=== PATIENT | female | born 2005 | race Two or more races ===

== ENCOUNTER 2024-09-18 16:34 | Observation (INO) | payer MEDICAID, SELFPAY ==
[2024-09-18 16:46] VITALS: BP 123/84; PULSE 96; RESP 18; TEMP 36.9; O2SAT 99; BMI 30.9
--- NOTE | 2024-09-18 16:57 | XR_ITS ---
Examination: CT abdomen with intravenous contrast CT pelvis with intravenous contrast 2-D coronal reconstructions 2-D sagittal reconstructions Date and time of exam:September 18, 2024 1747 hrs. Indications: Onset sharp right lower abdominal pain and vomiting beginning 1300 hrs. Today. CTDI: vol (mGy) 8.39 DLP: (mGycm) 456 Technique: Multiple axial sections of the abdomen and pelvis have been obtained. 64 slice high-resolution scanner used. 3 mm axial sections have been obtained, post intravenous injection 60 cc Isovue-370 2-D sagittal, coronal reconstructions obtained. Low dose protocols were performed. One or more of the following dose reduction techniques were used; automated exposure control, adjustment of the mA and/or KV according to patient size, use of iterative reconstruction technique. Findings: No focal liver or splenic lesions No gallstones No pancreatic or adrenal mass No renal or ureteral calculi, no hydronephrosis Aorta normal size 10 mm fat-containing umbilical hernia Fluid-filled inflamed enlarged appendix medial to the cecum, coronal image 64 No pelvic abscess or free fluid in the pelvis Anteverted uterus no adnexal mass Intact urinary bladder The osseous structures are intact Impression: Acute appendicitis,, no pelvic abscess or findings of appendiceal perforation
[2024-09-18 17:08] VITALS: BP 140/87; PULSE 92; RESP 17; TEMP 36.5; O2SAT 99
[2024-09-18 17:15] LABS: Collection Type, Urine Clean Catch
--- NOTE | 2024-09-18 17:16 | EDNOTE_ITS ---
ED Abdominal Pain RME/HPI General Chief Complaint: Abdominal Pain Stated complaint: SHARP, RLQ PAIN X2 HOURS AGO S/P FALL AT 11 AM Time seen by provider: 09/18/24 16:38 Arrival date/time: 09/18/24 16:34 Limitations: no limitations RME / HPI RME / HPI narrative: 19 year old female with history of gastritis presents to the ED for complaint of abdominal pain beginning at 1pm today. States pain is located most to the right lower quadrant, described as sharp in sensation, rating as severe. Accompanied by nausea and 1 episode of vomiting. States she ate breakfast and lunch which she tolerated well. Denies fevers, chills, chest pain, cough, shortness of breath, diarrhea, constipation, or urinary symptoms. Denies any history of similar pain. No previous surgeries on abdomen. Patient mentioned at ~ 11am today she fell forward onto her abdomen while moving couches although says I did not fall that hard . Denied head injury or LOC. Related Data Previous Rx's ?Medication ?Instructions ?Recorded docusate sodium 100 mg capsule 100 mg PO BID #20 caps 09/19/24 (Colace) hydrocodone 5 mg-acetaminophen 325 1 tab PO Q6H PRN pain (scale score 09/19/24 mg tablet 7-10) #10 tabs ibuprofen 600 mg tablet 600 mg PO Q8H PRN pain (scale 09/19/24 score 4-6) #15 tabs Allergies Allergy/AdvReac Type Severity Reaction Status Date / Time No Known Allergies Allergy Verified 09/18/24 16:36 Review of Systems Review of Systems Narrative Review of Systems: GEN: No fever, no chills, no weight loss EYES: No discharge, no visual changes, no pain HEENT: No ear pain, no congestion, no sore throat PULM: No shortness of breath, no cough, no congestion CV: No chest pain, no dyspnea on exertion, no palpitations GI: +nausea, + vomiting x1, no diarrhea, +pain, no constipation : No frequency, no urgency, no dysuria MUSC/SKEL: No joint pain, no back pain SKIN: No rash PSYCH: No hallucinations, no depression HEME/LYMPH: No easy bleeding or bruising tendencies NEURO: No weakness, no headache Past Medical History Past Medical History CARDIAC: Negative Cardiac Disorders or Congestive Heart Failure RESPIRATORY: Negative Chronic Obstructive Pulmonary Disease (COPD) or Asthma GENITOURINARY: Negative Renal Disease ENDOCRINE: Negative Diabetes Mellitus Type 1 or Diabetes Mellitus Type 2 HEMATOLOGIC: Negative Sickle Cell Disease Social History SMOKING STATUS: Never smoker ED Exam General Limitations: Present no limitations General appearance: Present alert and in distress (mild ) Head Head exam: Present atraumatic, normocephalic and normal inspection Eye Eye exam: Present normal appearance, PERRL and EOMI ENT ENT exam: Present normal exam, normal oropharynx and mucous membranes moist Neck Neck exam: Present normal inspection, full ROM and trachea midline Chest Chest inspection: Present normal inspection and symmetric chest wall rise Respiratory Respiratory exam: Present normal lung sounds bilaterally Cardiovascular Cardiovascular exam: Present regular rate, normal rhythm and normal heart sounds Abdominal Exam Abdominal exam: Present soft, tenderness (Tenderness to the epigastric and RUQ although most severe in the RLQ), guarding (moderate), normal bowel sounds and other (Referred pain in the right lower quadrant when palpation of the LLQ. ) Extremities Exam Extremities exam: Present normal inspection and full ROM Back Exam Back exam: Present normal inspection and full ROM Neurological Exam Neurological exam: Present alert, oriented X3 and CN II-XII intact Psychiatric Psychiatric exam: Present normal affect and normal mood Skin Skin exam: Present warm, dry, intact and normal color Course Course Course Narrative: 1800: Patient signed out to Dr. Low pending CT report, labs, and final disposition. Quality Measures none Orders Category Date Time Status Patient Condition Routine Admission 09/18/24 20:[address] in Observation Status Routine Admission 09/18/24 20:30 Active Activity as Tolerated Routine Care 09/18/24 20:31 Ordered COVID-19 Screening Questionnaire NOW Care 09/18/24 19:[address] Screening NOW Care 09/18/24 16:57 Completed Equipment Validation Specialist STAT Care 09/18/24 17:15 Completed Continuous Pulse Oximetry STAT Care 09/18/24 17:15 Completed Decision to Admit X1 Care 09/18/24 19:42 Completed Insert IV NOW Care 09/18/24 16:57 Completed Insert IV STAT Care 09/18/24 17:15 Completed Intake and Output QSHIFT Care 09/18/24 20:30 Ordered NPO NOW Care 09/18/24 19:41 Completed NPO NOW Care 09/18/24 20:31 Completed NPO STAT Care 09/18/24 17:15 Completed Notify provider NEEDED Care 09/18/24 20:30 Completed Diet NPO (NOW) Diet 09/18/24 19:41 Completed Diet NPO (NOW) Diet 09/18/24 20:[address] abdomen pelvis w con Stat Exams 09/18/24 16:57 Completed XR chest 1V portable Stat Exams 09/18/24 17:17 Completed CBC Stat Lab 09/18/24 17:25 Completed Comprehensive Metabolic Panel Stat Lab 09/18/24 17:25 Completed HCG Qualitative,Urine Stat Lab 09/18/24 17:05 Completed Lipase Stat Lab 09/18/24 17:25 Completed UA, C/S IF [Urinalysis, C/S if Indicated] Stat Lab 09/18/24 17:05 Completed Urine Culture Stat Lab 09/18/24 17:05 Completed Acetaminophen Tab [Tylenol Tab] Med 09/18/24 20:30 Discontinued 650 mg PO Q6H PRN Cefoxitin [Mefoxin] 2 gm Med 09/19/24 00:00 Discontinued Sodium Chloride 0.9% (P) [Ns 0.9% (P)] 50 ml IV Q6HR HYDROmorphone INJ [Dilaudid Inj] Med 09/18/24 17:15 Discontinued 0.5 mg IVP Q1H PRN KCL 20 mEq/L in D5-1/2NS Med 09/18/24 20:30 Discontinued 20 meq in 1,000 ml IV 100 mls/hr Morphine Inj Med 09/18/24 20:32 Discontinued 3 mg IVP Q2H PRN Morphine Inj [Morphine Sulf Inj] Med 09/18/24 19:42 Discontinued 4 mg IVP Q1H PRN Ondansetron Inj [Zofran Inj] Med 09/18/24 20:30 Discontinued 4 mg IV Q6H PRN Ondansetron Inj [Zofran Inj] Med 09/18/24 17:16 Discontinued 4 mg IV X1 ONE Piper/Tazo 3.375 gm [Zosyn] 50 ml Med 09/19/24 06:00 Discontinued IV Q8HR Piper/Tazo 3.375 gm [Zosyn] 50 ml Med 09/18/24 19:45 Discontinued IV X1 Sodium Chloride 0.9% 1000 ml [Ns] 1,000 ml Med 09/18/24 17:15 Discontinued IV 999 mls/hr Sodium Chloride 0.9% 1000 ml [Ns] 1,000 ml Med 09/18/24 19:42 Discontinued IV 999 mls/hr Code Status Routine Oth 09/18/24 20:30 Completed Vital Signs Vital signs: Vital Signs Temperature 98.5 F 09/18/24 16:46 Pulse Rate 96 09/18/24 16:46 Respiratory Rate 18 09/18/24 16:46 Blood Pressure 123/84 09/18/24 16:46 Pulse Oximetry (%) 99 09/18/24 16:46 Oxygen Delivery Method Room Air 09/18/24 16:46 Pulse ox is 99% on room air which is adequate. Abdominal Pain MDM MDM Narrative MDM Narrative:: Myrna Pierre am scribing for and in the presence of Dr. Gonsalves. Patient data External records reviewed:: [facility] previous records (I reviewed ED visit on 05/19/2023) Clinical information provided by:: patient Social determinants that could affect healthcare access:: none Patient has the following chronic illnesses:: Gastritis How is presenting disease/condition affected by chronic disease/condition?: uneffected by Evaluation data The following diagnostics were reviewed and interpreted by me:: lab results and radiology exam(s) Lab and/or radiology exams considered but not ordered:: None Interpretation Summary: Ordering Physician: Lai Gonsalves MD Date of Service: 09/18/24 Procedure(s): XR chest 1V portable Accession Number(s): [id number] cc: Tyler Elkins MD; Lai Gonsalves MD~ Examination: AP chest single view Technique one AP portable upright chest single view Exam date and time: September 18, 2024 1726 hours Comparison May 19, 2023 INDICATIONS: Right lower abdomen pain today FINDINGS: Normal heart size Lungs are clear. The osseous structures are intact IMPRESSION: No active disease Dictated By: Tyler Elkins MD Signed By: <Electronically signed by Tyler Elkins MD in OV> 09/18/24 1751 Medications / Prescriptions Medications or Prescriptions considered but not ordered:: None Medication administrations:: Medication Administration History Discontinued Medications Acetaminophen (Acetaminophen 325 Mg Tablet) 650 mg PO Q6H PRN PRN Reason: Fever >101.5 Stop: 10/18/24 20:29 Last Admin: 09/18/24 23:36 Dose: 650 mg Documented By: AL Comments: ok to give for mild pain Albuterol (Albuterol Inh 8 Gm) Confirm Administered Dose 200 puff INH .STK-MED ONE Stop: 09/19/24 10:48 Albuterol/Ipratropium (Albuterol/Ipratropium (Duoneb) Rt Leora 3 Ml Nebu) 3 ml INH Q4HRRT PRN PRN Reason: SHORTNESS OF BREATH Stop: 10/19/24 10:40 Bupivacaine HCl (Bupivacaine Mpf 0.5% 10 Ml Vial) Confirm Administered Dose 30 ml .ROUTE .STK-MED ONE Stop: 09/19/24 09:22 Dexamethasone Sodium Phosphate (Dexamethasone Sod Phos Inj 10 Mg/Ml Vial) Confirm Administered Dose 10 mg .ROUTE .STK-MED ONE Stop: 09/19/24 09:48 Esmolol HCl (Esmolol Inj 10 Mg/Ml Vial 10 Ml) Confirm Administered Dose 100 mg .ROUTE .STK-MED ONE Stop: 09/19/24 10:03 Fentanyl Citrate (Fentanyl Cit Inj 50 Mcg/Ml Amp 2ml) Confirm Administered Dose 100 mcg .ROUTE .STK-MED ONE Stop: 09/19/24 09:48 Fentanyl Citrate (Fentanyl Cit Inj 50 Mcg/Ml Amp 2ml) 50 mcg IV Q5M PRN; Protocol PRN Reason: PAIN SCALE 4-10(Mod-Sev Stop: 09/19/24 12:42 Hydromorphone HCl (Hydromorphone Inj 2 Mg/Ml Vial) 0.5 mg IVP Q1H PRN PRN Reason: RLQ pain Stop: 09/18/24 20:16 Hydromorphone HCl (Hydromorphone Inj 2 Mg/Ml Vial) 0.2 mg IV Q5M PRN PRN Reason: PAIN 1-6 (mild-mod Stop: 09/19/24 12:42 Sodium Chloride (Ns) 1,000 mls @ 999 mls/hr IV .Q1H1M ONE Stop: 09/18/24 18:15 Last Infusion: 09/18/24 19:46 Dose: Infused Documented By: Admin: 09/18/24 17:25 Dose: 999 mls/hr Documented By: YECENIA Piperacillin/Tazobactam/Dextrose (Zosyn) 50 mls @ 12.5 mls/hr IV Q8HR JIMMY Stop: 09/26/24 05:59 Sodium Chloride (Ns) 1,000 mls @ 999 mls/hr IV .Q1H1M ONE Stop: 09/18/24 20:42 Last Infusion: 09/18/24 21:44 Dose: Infused Documented By: Admin: 09/18/24 19:50 Dose: 999 mls/hr Documented By: ASHU Piperacillin/Tazobactam/Dextrose (Zosyn) 50 mls @ 100 mls/hr IV X1 ONE Stop: 09/18/24 20:14 Last Infusion: 09/18/24 21:44 Dose: Infused Documented By: Admin: 09/18/24 19:49 Dose: 100 mls/hr Documented By: ASHU Potassium Chloride/Dextrose/Sod Cl (Kcl 20 Meq/L In D5-1/2ns) 20 meq in 1,000 mls @ 100 mls/hr IV .Q10H JIMMY Stop: 10/18/24 20:29 Last Admin: 09/19/24 08:23 Dose: 100 mls/hr Documented By: Infusion: 09/19/24 08:12 Dose: Infused Documented By: Admin: 09/18/24 22:12 Dose: 100 mls/hr Documented By: ROSALIA Cefoxitin Sodium 2 gm/ Sodium (Chloride) 50 mls @ 100 mls/hr IV Q6HR JIMMY Stop: 09/26/24 00:00 Last Admin: 09/19/24 11:42 Dose: 100 mls/hr Documented By: Infusion: 09/19/24 08:26 Dose: Infused Documented By: Admin: 09/19/24 05:32 Dose: 100 mls/hr Documented By: Infusion: 09/18/24 23:56 Dose: Infused Documented By: Admin: 09/18/24 23:26 Dose: 100 mls/hr Documented By: ROSALIA Acetaminophen (Ofirmev Inj) Confirm Administered Dose 100 mls @ ud IV .STK-MED ONE Stop: 09/19/24 10:18 Lidocaine HCl (Lidocaine Inj Pf 2% 5 Ml Vial) Confirm Administered Dose 5 ml .ROUTE .STK-MED ONE Stop: 09/19/24 09:52 Midazolam HCl (Midazolam Inj 1 Mg/Ml Vial 2 Ml) Confirm Administered Dose 2 mg .ROUTE .STK-MED ONE Stop: 09/19/24 09:48 Morphine Sulfate (Morphine Sulf Inj 4 Mg/Ml Vial) 4 mg IVP Q1H PRN PRN Reason: PAIN Morphine Sulfate (Morphine Sulf Inj 10 Mg/Ml Vial) 3 mg IVP Q2H PRN PRN Reason: PAIN Stop: 09/20/24 20:31 Last Admin: 09/19/24 05:36 Dose: 3 mg Documented By: Admin: 09/18/24 22:12 Dose: 3 mg Documented By: AL Ondansetron HCl (Ondansetron Inj 2 Mg/Ml Inj 2 Ml) 4 mg IV X1 ONE; Protocol Stop: 09/18/24 17:17 Last Admin: 09/18/24 17:25 Dose: 4 mg Documented By: YECENIA Ondansetron HCl (Ondansetron Inj 2 Mg/Ml Inj 2 Ml) 4 mg IV Q6H PRN PRN Reason: NAUSEA OR VOMITING Stop: 10/18/24 20:29 Last Admin: 09/19/24 05:36 Dose: 4 mg Documented By: Admin: 09/18/24 22:12 Dose: 4 mg Documented By: AL Ondansetron HCl (Ondansetron Inj 2 Mg/Ml Inj 2 Ml) Confirm Administered Dose 4 mg .ROUTE .STK-MED ONE Stop: 09/19/24 09:48 Ondansetron HCl (Ondansetron Inj 2 Mg/Ml Inj 2 Ml) 4 mg IV X1 ONE Stop: 09/19/24 10:42 Propofol (Propofol Inj 10 Mg/Ml Vial 20 Ml) Confirm Administered Dose 200 mg IV .STK-MED ONE Stop: 09/19/24 09:48 Rocuronium [place] (Rocuronium Inj 10 Mg/Ml Vial 10 Ml) Confirm Administered Dose 100 mg .ROUTE .STK-MED ONE Stop: 09/19/24 09:48 Sugammadex Sodium (Sugammadex Inj 100 Mg/Ml 2ml Vial) Confirm Administered Dose 200 mg .ROUTE .STK-MED ONE Stop: 09/19/24 10:03 See above Consultations Consultation(s) initiated? (list below): No Diagnosis Differential diagnosis abdominal pain: abdominal pain, acute appendicitis, calculus of kidney and gastroenteritis Most likely diagnosis given after review of the tests above:: Abdominal pain Admission Indicated Admission indicated?: not indicated Explain why admission is indicated or not indicated:: 1800: Patient signed out to Dr. Low pending CT report, labs, and final disposition. Admission Request Was there a request for admission?: No Disposition Plan Disposition Plan: other (specify) (1800: Patient signed out to Dr. Low pending CT report, labs, and final disposition. ) Discharge Plan Plan Patient Disposition: Admit Acute Care w/in Hospital Problem List Clinical Impression: Abdominal pain Patient/Caregiver Discharge Instructions Discharge Activity: activity as tolerated
[2024-09-18 17:22] LABS: HCG Qualitative,Urine Negative
[2024-09-18] MEDS: SODIUM CHLORIDE 0.9% 1000 ML 1,000 ML 999 ML IV ×2 (17:25→19:50)
[2024-09-18] MEDS: ONDANSETRON INJ 2 MG/ML INJ 2 ML 4 MG IV ×2 (17:25→22:12)
[2024-09-18 17:26] LABS: Bacteria,Urine Rare; Bilirubin,Urine Negative (Negative); Blood,Urine 1+ (Negative); Color,Urine Lt-Yellow (Lt Yel-Yel); Glucose, Urine Negative (Negative); Ketones,Urine Trace (Negative); Leukocyte Esterase,Urine Positive (Negative); Nitrite,Urine Negative (Negative); PH,Urine 6.5 (5.0-7.0); Protein,Urine Negative (Neg - Trace); RBC,Urine 8 /hpf (0-3); Specific Gravity,Urine 1.018 (1.001-1.035); Squamous Epithelial Cell,Urine 10 /hpf (0-5); Urobilinogen,Urine Negative mg/dL (0.0-1.0); WBC,Urine 13 /hpf (0-5)
[2024-09-18 17:37] LABS: Clarity,Urine Hazy (Clear/Hazy); Culture Indicated,Urine Yes
[2024-09-18 17:46] LABS: Basophils # (Auto) 0.1 Thou/mm3 (0.0-0.2); Basophils % (Auto) 0 % (0-2.5); Eosinophils # (Auto) 0.1 Thou/mm3 (0.0-0.5); Eosinophils % (Auto) 0 % (0-10); Hematocrit 45.1 % (36.0-46.0); Hemoglobin 15.2 g/dL (12.0-16.0); Immature Granulocytes % (Auto) 1 % (0-0); Immature Granulocytes Auto 0.12 Thou/mm3 (0.00-0.00); Lymphocytes # (Auto) 2.1 Thou/mm3 (1.0-4.8); Lymphocytes % (Auto) 9 % (10-50); Mean Corpuscular HGB Conc 33.7 g/dl (31.0-37.0); Mean Corpuscular Hemoglobin 30.8 pg (25.0-35.0); Mean Corpuscular Volume 91 fL (80-100); Monocytes # (Auto) 1.2 Thou/mm3 (0.0-0.8); Monocytes % (Auto) 5 % (0-12); Neutrophils # (Auto) 19.7 Thou/mm3 (1.8-7.7); Neutrophils % (Auto) 85 % (37-80); Nucleated Red Blood Cell % 0 /100 WBC (0); Platelet Count 306 Thou/mm3 (140-440); RDW Standard Deviation 43.7 fL (36.4-46.3); Red Blood Count 4.94 Miln/mm3 (4.00-5.20); White Blood Count 23.2 Thou/mm3 (4.5-11.0)
[2024-09-18 18:04] LABS: Alanine Aminotransferase 16 U/L (10-49); Albumin/Globulin Ratio 2.2 (1.2-2.2); Alkaline Phosphatase 78 U/L (46-116); Anion Gap 8 (7-16); Aspartate Amino Transferase 14 U/L (0-34); BUN/Creatinine Ratio 10 Ratio (12-20); Bilirubin,Total 0.8 mg/dL (0.3-1.2); Blood Urea Nitrogen 7 mg/dL (9-23); Calcium 9.2 mg/dL (8.3-10.6); Calcium (Corrected) 9.2 mg/dL (8.5-10.1); Carbon Dioxide 26.4 mMol/L (20.0-31.0); Chloride 102 mMol/L (98-107); Creatinine (Component) 0.7 mg/dL (0.6-1.3); Globulin 2.3 gm/dL (2.3-3.5); Glucose 102 mg/dL (74-106); Lipase 29 U/L (12-53); Osmolality,Calculated 269 (275-295); Potassium 3.4 mMol/L (3.4-5.1); Sodium 136 mMol/L (136-145); Total Protein 7.3 gm/dL (5.7-8.2); eGFR > 60 See Note
[2024-09-18 18:07] VITALS: BP 132/88; PULSE 102; RESP 18; TEMP 36.9; O2SAT 100
--- NOTE | 2024-09-18 18:22 | PD.EDADDENDU ---
Emergency Room Addendum Addendum Narrative: 1800: Care assumed from Dr. Gonsalves, the previous shift emergency physician. Past medical, surgical, social and family history reviewed. Vitals and home medications reviewed. I will assume the care of the patient at this time, pending CT report, labs, and final disposition. Please refer to the emergency department record for history and examination from initial visit.? 19 year old female presents to the Emergency Department with complaint of sharp right lower quadrant pain onset 1 PM today. Physical exam by me shows patient under pain distress at this time. She is sitting up, there is diffuse tenderness, but mainly in the right lower quadrant with guarding. 2030: Discussed test HPI, PMHx, lab, radiology results and/or management with Dr. Palmer. Will admit for further evaluation and management. Accepts patient for admission. RADIOLOGY Procedure(s): CT abdomen pelvis w con Accession Number(s): [id number] cc: Timi (MARYSE),Orlin SERRA; Shannan Norris; Tyler Elkins MD~ Examination: CT abdomen with intravenous contrast CT pelvis with intravenous contrast 2-D coronal reconstructions 2-D sagittal reconstructions Date and time of exam:September 18, 2024 1747 hrs. Indications: Onset sharp right lower abdominal pain and vomiting beginning 1300 hrs. Today. CTDI: vol (mGy) 8.39 DLP: (mGycm) 456 Technique: Multiple axial sections of the abdomen and pelvis have been obtained. 64 slice high-resolution scanner used. 3 mm axial sections have been obtained, post intravenous injection 60 cc Isovue-370 2-D sagittal, coronal reconstructions obtained. Low dose protocols were performed. One or more of the following dose reduction techniques were used; automated exposure control, adjustment of the mA and/or KV according to patient size, use of iterative reconstruction technique. Findings: No focal liver or splenic lesions No gallstones No pancreatic or adrenal mass No renal or ureteral calculi, no hydronephrosis Aorta normal size 10 mm fat-containing umbilical hernia Fluid-filled inflamed enlarged appendix medial to the cecum, coronal image 64 No pelvic abscess or free fluid in the pelvis Anteverted uterus no adnexal mass Intact urinary bladder The osseous structures are intact Impression: Acute appendicitis,, no pelvic abscess or findings of appendiceal perforation Dictated By: Tyler Elkins MD
[2024-09-18] MEDS: PIPER/TAZO 3.375 GM 50 ML IV (19:49)
--- NOTE | 2024-09-18 20:38 | PD.SURHP ---
HPI Date of Admission 09/18/2024 Chief Complaint Chief Complaint: Right lower quadrant abdominal pain with nausea and vomiting HPI 19-year-old female presented to the emergency department with acute onset of abdominal pain. Her pain started earlier today in the epigastric and periumbilical area. The pain was intermittent initially, then it became persistent and progressively worse. Her pain is now localized over right lower quadrant. She has had nausea and vomiting, but denies fever, chills, diarrhea, constipation or dysuria. She denies having similar symptoms in the past with no recent history of trauma. Review of Systems Constitutional Constitutional: Denies chills and Denies fever(s) Cardiovascular Cardiovascular: Denies chest pain Respiratory Respiratory: Denies cough Gastrointestinal Gastrointestinal: Reports abdominal pain, Reports nausea and Reports vomiting Genitourinary Genitourinary: Denies difficulty voiding Hematologic/Lymphatic Hematologic/Lymphatic: Denies easy bleeding and Denies easy bruising Past Medical History Surgical History OTHER SURGICAL HX: No surgeries in the past Social History SMOKING STATUS: Never smoker SUBSTANCE USE: marijuana ALCOHOL: Never Meds Home Medications and Allergies Home Medications ?Medication ?Instructions ?Recorded ?Confirmed ?Type No Known Home Medications 04/12/19 04/12/19 History Allergies Allergy/AdvReac Type Severity Reaction Status Date / Time No Known Allergies Allergy Verified 09/18/24 16:36 Exam Vital Signs Temp Pulse Resp BP Pulse Ox O2 Del Method 98.4 F 102 H 18 132/88 H 100 Room Air 09/18/24 18:07 09/18/24 18:07 09/18/24 18:07 09/18/24 18:07 09/18/24 18:07 09/18/24 18:07 Constitutional Constitutional: no acute distress Routine Respiratory Exam Respiratory: Present CTA bilaterally Routine Cardiovascular Exam Cardiovascular: Present RRR Routine Abdominal Exam Abdominal: Present soft, normoactive bowel sounds and tenderness (Right lower quadrant tenderness to palpation with guarding, no rebound tenderness or peritonitis at this time); Absent distended Results Results: Laboratory Laboratory results: results reviewed Results: Imaging CT scan - abdomen: report reviewed and image reviewed CT scan - pelvis: report reviewed and image reviewed Assessment & Plan Problem List (1) Unspecified acute appendicitis: Qualifiers: Acute appendicitis type: unspecified acute appendicitis type Qualified Code(s): K35.80 - Unspecified acute appendicitis Status: Acute Plan Keep NPO with IVF and IV antibiotics. Plan for laparoscopic possible open appendectomy. Risks include but not limited to infection, bleeding, injury to bowel, bladder, uterus, ovaries, surround neurovascular structures, abdominal sepsis and or abdominal abscess, need for further procedure and or operation discussed with the patient. Benefits and alternatives explained to her, all her questions answered, she agreed and consented to proceed with the operation. Quality Measures Quality Measures none
[2024-09-18 21:30] VITALS: BP 114/70; PULSE 103; RESP 16; TEMP 37.3; O2SAT 99
--- NOTE | 2024-09-18 21:49 | PC.NURSE ---
REPORT GIVEN TO RAMA LINTON RN
[2024-09-18 21:57] VITALS: BMI 30.4
[2024-09-18] MEDS: KCL 20 mEq/L in D5-1/2NS 20 MEQ/1,000 ML BAG 100 MEQ IV (22:12)
[2024-09-18] MEDS: MORPHINE SULF INJ 10 MG/ML VIAL 3 MG IVP (22:12)
[2024-09-18] MEDS: CEFOXITIN 2 GM in SODIUM CHLORIDE 0.9% (P) 50 ML IV (23:26)
[2024-09-18] MEDS: ACETAMINOPHEN 325 MG TABLET 650 MG PO (23:36)
[2024-09-19] VITALS (9 sets, daily range): BP systolic 109–132; BP diastolic 71–88; PULSE 82–116; RESP 14–96; TEMP 36.1–36.7; O2SAT 94–100
[2024-09-19] MEDS: CEFOXITIN 2 GM in SODIUM CHLORIDE 0.9% (P) 50 ML IV ×2 (05:32→11:42)
[2024-09-19] MEDS: ONDANSETRON INJ 2 MG/ML INJ 2 ML 4 MG IV (05:36)
[2024-09-19] MEDS: MORPHINE SULF INJ 10 MG/ML VIAL 3 MG IVP (05:36)
[2024-09-19] MEDS: KCL 20 mEq/L in D5-1/2NS 20 MEQ/1,000 ML BAG 100 MEQ IV (08:23)
--- NOTE | 2024-09-19 10:27 | ESOP_ITS ---
Date of Procedure 09/19/24 Pre Op Diagnosis Acute appendicitis Post Op Diagnosis Acute appendicitis Procedure Laparoscopic appendectomy Findings Inflamed, dilated and hyperemic appendix without perforation Procedure Description Patient was brought into the operating room in supine position. After administration of general endotracheal anesthesia, abdomen was prepped and draped in standard surgical manner. A Veress needle was inserted through the umbilicus and pneumoperitoneum was obtained up to 15 mmHg. The Veress needle was removed and a 5 mm umbilical incision was made. A 5 mm trocar was placed and laparoscopic camera was inserted. Under direct visualization a laparoscopic camera a 5 mm trocar placed in suprapubic region and a 10 mm trocar placed in left lower quadrant. The abdomen was inspected, the cecum was identified and followed until the appendix was identified. The appendix was noted to be inflamed, dilated and hyperemic without perforation. A window was created between the appendix and mesoappendix and the appendix was divided near the appendix and cecal junction with blue Endo JEFFERY stapling device. The mes oappendix was divided with her Endo JEFFERY stapling device. The appendix was placed inside an Endo Catch and removed from the abdomen utilizing left lower quadrant trocar site. Abdomen and pelvis copiously and thoroughly washed and irrigated, all the fluids were suctioned and the suctioned fluid returned clear. Hemostasis was adequate and satisfactory, staple lines were intact without bleeding or any leakage. Left lower quadrant trocar sites fascial defect was closed with 0 Vicryl using Endo closure device. Instruments and trocars removed, pneumoperitoneum was evacuated and the incisions closed with 4-0 Monocryl subcuticular fashion. Instruments, needles and sponge counts were reported to be correct ??2. Patient tolerated the procedure well, was extubated, breathing spontaneously and without difficulty and was transferred to postanesthesia care in stable condition. Anesthesia GETA and local Pathology / specimen Other (Appendix) Estimated Blood Loss 5 Condition Stable Disposition PACU Surgeon Marciano Palmer MD Surgical Staff Operation Date: 09/19/24 10:15 <No data on this case meets the specified criteria>
--- NOTE | 2024-09-19 10:37 | SUR.PHASEI ---
1037: Pt. AAOx4, vitals stable, breathing unlabored, no complaint of pain or nausea, x3 dermabond sites to ABD CDI, no active bleed noted, report received from Jane JAMIL and Junie ARREDONDO.
--- NOTE | 2024-09-19 11:07 | SUR.PHASEI ---
1107: Pt. AAOx4, vitals stable, breathing unlabored, no complaint of pain or nausea, x3 dermabond sites to ABD CDI, no active bleed noted, pt. tolerated bites of ice chips well, gave report to Priya ARREDONDO prior to transfer to room 357. Attempted to call family to make them aware of transfer to room, voicemail was left.
== END 2024-09-19 13:14 | disposition home or self-care (01) ==
LOC: SERX 19:42 → SERHOLD 20:38 → S3NX 21:57
PROVIDERS: Nurse Practitioner Primary Care; Admitting Provider Surgery; Emergency Provider Emergency Medicine; PCP Nurse Practitioner Family; Visit Provider Surgery
PROC: 0DTJ4ZZ Resection of Appendix, Percutaneous Endoscopic Approach (ICD-10-PCS; CPT 44970; principal; 2024-09-19 10:00)
DX: K35.30 Acute appendicitis with localized peritonitis, without perforation or gangrene (principal); Z87.19 Personal history of other diseases of the digestive system
CPT/HCPCS: 44970; 36415; 71045; 74177; 80053; 81001; 81025; 83690; 85025; 87086; 96361; 96365; 96366; 96375; 99285; A4217; A4649; G0378; J0131; J0694; J1100; J2250; J2270; J2405; J2543; J2704; J3010; J3480; J3490; J7030; J7050; Q9967; A9270; J1805

== ENCOUNTER 2025-07-04 07:04 | Emergency (ER) | payer MEDICAID, SELFPAY ==
[2025-07-04 07:06] VITALS: BMI 26.5
[2025-07-04 07:16] VITALS: BP 134/85; PULSE 67; RESP 17; TEMP 37; O2SAT 100
--- NOTE | 2025-07-04 07:26 | EKG_ITS ---
[facility] Test Date: 2025-07-04 Pat Name: VINH DURAN Department: Room: - Gender: Female Resolution Analyst: : 2005 Requested By: Puma Lucas Order Number: [id number] Reading MD: Puma Lucas Measurements Intervals Topping Rate: 62 P: 61 WI: 159 QRS: 40 QRSD: 81 T: 47 QT: 397 QTc: 405 Interpretive Statements SINUS RHYTHM WITH SINUS ARRHYTHMIA No previous ECG available for comparison /[id number]/S0/[id number].pdf
--- NOTE | 2025-07-04 07:29 | PD.EDSYNC ---
ED Syncope RME/HPI General Chief Complaint: General Adult/Misc Complain Stated Complaint: FAINTED Time Seen by Provider: 07/04/25 07:15 Source: patient, RN notes reviewed and old records reviewed Arrival date/time: 07/04/25 07:04 Mode of arrival: ambulatory Limitations: no limitations RME / HPI RME / HPI narrative: 20yof presents ED after syncopal episode at work this morning. Patient reports she's been tired lately from working overnight shifts. She is concerned her tampon fell out while using the restroom this morning (tampon was placed 06/25). Patient passed out around 0430 while sitting on the couch, LOC duration approximately 1 minute. Denies head injury. Patient reports mild dizziness pre- and post syncope. No fever, shortness of breath, chest pain, headache, nausea/vomiting/diarrhea, dysuria or vaginal discharge reported. 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 Previous Rx's ?Medication ?Instructions ?Recorded docusate sodium 100 mg capsule 100 mg PO BID #20 caps 09/19/24 (Colace) hydrocodone 5 mg-acetaminophen 325 1 tab PO Q6H PRN pain (scale score 09/19/24 mg tablet 7-10) #10 tabs ibuprofen 600 mg tablet 600 mg PO Q8H PRN pain (scale 09/19/24 score 4-6) #15 tabs Allergies Allergy/AdvReac Type Severity Reaction Status Date / Time No Known Allergies Allergy Verified 07/04/25 07:06 Review of Systems Review of Systems Systems Reviewed: All systems reviewed, normal except as documented Constitutional Constitutional: Denies chills, Denies fever(s) and Denies headache(s) ENT Ears, Nose, Mouth, and Throat: Reports dizziness and Denies headache(s) Cardiovascular Cardiovascular: Denies chest pain, Denies dyspnea and Reports syncope Respiratory Respiratory: Denies dyspnea Gastrointestinal Gastrointestinal: Denies abdominal pain, Denies loose stools, Denies nausea and Denies vomiting Genitourinary Genitourinary: Denies dysuria, Denies pelvic pain and Denies vaginal discharge Neurologic Neurologic: Reports dizziness, Denies headache(s) and Reports syncope Past Medical History Surgical History SURGICAL: Positive Abdominal Surgery (Appendectomy) Social History SMOKING STATUS: Never smoker SUBSTANCE USE: marijuana ALCOHOL: Never Past Medical History Comments PMH COMMENT: denies pmhx ED Exam General Limitations: Present no limitations General appearance: Present alert and in no apparent distress Head Head exam: Present atraumatic and normocephalic Eye Eye exam: Present normal appearance, PERRL and EOMI ENT ENT exam: Present normal exam and mucous membranes moist Neck Neck exam: Present normal inspection and full ROM Chest Chest inspection: Present normal inspection and symmetric chest wall rise Respiratory Respiratory exam: Present normal lung sounds bilaterally; Absent respiratory distress Cardiovascular Cardiovascular exam: Present regular rate and normal rhythm Abdominal Exam Abdominal exam: Present soft; Absent distention, tenderness, guarding or rebound Extremities Exam Extremities exam: Present normal inspection and full ROM Neurological Exam Neurological exam: Present alert and oriented X3 Psychiatric Psychiatric exam: Present normal affect and normal mood Skin Skin exam: Present warm, dry, intact and normal color Course Quality Measures none Orders Category Date Time Status EKG (ED ONLY) *Do not use* NOW Care 07/04/25 07:27 Completed EKG (ED Only) Stat Exams 07/04/25 07:26 Draft CBC Stat Lab 07/04/25 07:53 Completed CMP [Comprehensive Metabolic Panel] Stat Lab 07/04/25 07:53 Completed HCG Qualitative,Urine Stat Lab 07/04/25 08:05 Completed Troponin I Stat Lab 07/04/25 07:53 Completed UA [Urinalysis] Stat Lab 07/04/25 08:05 Completed Vital Signs Vital signs: Vital Signs Temperature 98.6 F 07/04/25 07:16 Pulse Rate 67 07/04/25 07:16 Respiratory Rate 17 07/04/25 07:16 Blood Pressure 134/85 H 07/04/25 07:16 Pulse Oximetry (%) 100 07/04/25 07:16 Oxygen Delivery Method Room Air 07/04/25 07:16 PROCEDURES: EKG Interpretation #1: Date of EK07/04/25 Rate: 62 Interpretation: Interpreted by me EKG Impression: Normal sinus rhythm, No acute ST-T changes, No ectopy, No ischemic changes, Normal QRS, Normal intervals and Normal axis Syncope MDM Narrative MDM Narrative:: 20yof presents ED after syncopal episode at work this morning. Patient reports she's been tired lately from working overnight shifts. She is concerned her tampon fell out while using the restroom this morning (tampon was placed 06/25). Patient passed out around 0430 while sitting on the couch, LOC duration approximately 1 minute. Denies head injury. Patient reports mild dizziness pre- and post syncope. No fever, shortness of breath, chest pain, headache, nausea/vomiting/diarrhea, dysuria or vaginal discharge reported. 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 Patient is well-appearing, vitals are stable. ED workup reassuring. Encouraged rest, fluids, close PCP follow-up as needed. Stable for discharge, RTED precautions given. Patient data External records reviewed:: [facility] previous records (09/18/24 admit for appendicitis) Clinical information provided by:: patient Social determinants that could affect healthcare access:: none Patient has the following chronic illnesses:: none How is presenting disease/condition affected by chronic disease/condition?: no chronic disease Evaluation data The following diagnostics were reviewed and interpreted by me:: lab results, radiology exam(s) and EKG tracing(s) Lab and/or radiology exams considered but not ordered:: none Interpretation Summary: EKG shows normal sinus No leukocytosis No INGE Negative troponin UA leuks w/squamous cells - contaminated Hcg negative Medications / Prescriptions Medications or Prescriptions considered but not ordered:: no antibiotics recommended at this time Medication administrations:: none Consultations Consultation(s) initiated? (list below): No Diagnosis Syncope Differential Diagnosis: other (syncope, dizziness, vasovagal reaction, hypotension, dehydration, exhaustion) Most likely diagnosis given after review of the tests above:: syncope Admission Indicated Admission indicated?: not indicated Admission Request Was there a request for admission?: No Disposition Plan Disposition Plan: Discharge Discharge Attestation Discharge Attestation: The patient and all family members were given an opportunity to ask questions and understood the discharge instructions. Discharge instructions specifically effects, indications for sooner follow up or return to the emergency department, and the expected course of current diagnosis. Patient condition: Stable Discharge Plan Plan Patient Disposition: HOME (Self Care) Patient condition on transfer: Stable Prescriptions/Referrals Prescriptions/Med Rec: No Action docusate sodium [Colace] 100 mg capsule 100 mg PO BID Qty: 20 0RF ibuprofen 600 mg tablet 600 mg PO Q8H PRN (Reason: pain (scale score 4-6)) Qty: 15 0RF hydrocodone-acetaminophen 5-325 mg tablet 1 tab PO Q6H MDD 4 PRN (Reason: pain (scale score 7-10)) Qty: 10 0RF Referrals: Chidi Craft MD [Primary Care Provider, Family Practice] - In 1 week Problem List Clinical Impression: Syncope Patient/Caregiver Discharge Instructions Education Materials: Causes of Syncope Print Language: [place] Stand Alone Forms: Sharyn Award Info., Work/School Release, Patient Portal Info Letter PA/ODD PIECE CHECKER Supervising Physician PA/ODD PIECE CHECKER Supervising Physician: Melonie
[2025-07-04 08:24] LABS: Basophils # (Auto) 0.1 Thou/mm3 (0.0-0.2); Basophils % (Auto) 1 % (0-2.5); Eosinophils # (Auto) 0.1 Thou/mm3 (0.0-0.5); Eosinophils % (Auto) 1 % (0-10); Hematocrit 44.2 % (36.0-46.0); Hemoglobin 14.7 g/dL (12.0-16.0); Immature Granulocytes Auto 0.03 Thou/mm3 (0.00-0.00); Lymphocytes # (Auto) 3.7 Thou/mm3 (1.0-4.8); Lymphocytes % (Auto) 33 % (10-50); Mean Corpuscular HGB Conc 33.3 g/dl (31.0-37.0); Mean Corpuscular Hemoglobin 30.5 pg (25.0-35.0); Mean Corpuscular Volume 92 fL (80-100); Monocytes # (Auto) 0.8 Thou/mm3 (0.0-0.8); Monocytes % (Auto) 8 % (0-12); Neutrophils # (Auto) 6.4 Thou/mm3 (1.8-7.7); Neutrophils % (Auto) 58 % (37-80); Nucleated Red Blood Cell # 0.00 Thou/mm3 (0.00-0.00); Nucleated Red Blood Cell % 0 /100 WBC (0); Platelet Count 309 Thou/mm3 (140-440); RDW Standard Deviation 46.4 fL (36.4-46.3); Red Blood Count 4.82 Miln/mm3 (4.00-5.20); White Blood Count 11.2 Thou/mm3 (3.6-11.0)
[2025-07-04 08:49] LABS: Alanine Aminotransferase 7 U/L (10-49); Albumin, Serum 4.5 gm/dL (3.5-5.0); Albumin/Globulin Ratio 2.0 (1.2-2.2); Alkaline Phosphatase 80 U/L (46-116); Anion Gap 9 (7-16); Aspartate Amino Transferase 14 U/L (0-34); BUN/Creatinine Ratio 9 Ratio (12-20); Bilirubin,Total 0.4 mg/dL (0.3-1.2); Blood Urea Nitrogen 6 mg/dL (9-23); Calcium 9.6 mg/dL (8.3-10.6); Calcium (Corrected) 9.6 mg/dL (8.5-10.1); Carbon Dioxide 27.4 mMol/L (20.0-31.0); Chloride 106 mMol/L (98-107); Creatinine (Component) 0.7 mg/dL (0.6-1.3); Estimated Creatinine Clearance 95.5 mL/min (>60); Globulin 2.3 gm/dL (2.3-3.5); Glucose 96 mg/dL (74-106); Osmolality,Calculated 280 (275-295); Potassium 3.6 mMol/L (3.4-5.1); Sodium 142 mMol/L (136-145); Total Protein 6.8 gm/dL (5.7-8.2); Troponin I < 0.002 ng/mL (0.0-0.045); eGFR > 60 See Note
[2025-07-04 09:38] LABS: Collection Type, Urine Clean Catch
[2025-07-04 09:59] LABS: HCG Qualitative,Urine Negative
[2025-07-04 10:04] LABS: Bacteria,Urine 1+; Bilirubin,Urine Negative (Negative); Blood,Urine 1+ (Negative); Color,Urine Lt-Yellow (Lt Yel-Yel); Glucose, Urine Negative (Negative); Ketones,Urine Negative (Negative); Leukocyte Esterase,Urine Positive (Negative); Nitrite,Urine Negative (Negative); PH,Urine 6.0 (5.0-7.0); Protein,Urine Negative (Neg - Trace); RBC,Urine 1 /hpf (0-3); Specific Gravity,Urine 1.019 (1.001-1.035); Squamous Epithelial Cell,Urine 31 /hpf (0-5); Urobilinogen,Urine Negative mg/dL (0.0-1.0); WBC,Urine 32 /hpf (0-5)
[2025-07-04 10:05] LABS: Clarity,Urine Hazy (Clear/Hazy)
== END 2025-07-04 10:14 | disposition home or self-care (01) ==
PROVIDERS: Physician Assistant; Emergency Provider Emergency Medicine; PCP Family Medicine
DX: R55 Syncope and collapse (principal); I49.8 Other specified cardiac arrhythmias
CPT/HCPCS: 36415; 80053; 81001; 81025; 84484; 85025; 93005; 99283